=== PATIENT | female | born 1970 | race Caucasian/White ===

== ENCOUNTER 2024-12-03 06:23 | Day surgery (SDC) | payer BC, SELFPAY | END 2024-12-03 12:45 | disposition home or self-care (01) | LOC: GI 06:23 | PROVIDERS: ATTENDING PHYSICIAN Internal Medicine | DX: Z12.11 Encounter for screening for malignant neoplasm of colon (principal); D12.3 Benign neoplasm of transverse colon; K63.5 Polyp of colon | CPT/HCPCS: 45385; 45381; 45380; 88305 ==